=== PATIENT | male | born 1985 | race Hispanic/Latino ===

== ENCOUNTER 2017-02-21 02:27 | Emergency (ER) | payer OTHER ==
[2017-02-21 02:37] VITALS: BP 125/73; PULSE 102; RESP 18; TEMP 97.6; O2SAT 98
--- NOTE | 2017-02-21 04:50 | ED PDOC ---
HPI: Psych/Substance Abuse Time Seen by Provider: 02/21/17 02:59 Chief Complaint (Nursing): Alcohol Ingestion Chief Complaint (Provider): alcohol Additional Complaint(s): 31yoM in ED for eval of intoxication. ptwith slurred speech/unstable gait. Past Medical History Reviewed: Historical Data, Nursing Documentation, Vital Signs Vital Signs: Last Vital Signs Temp 97.6 F 02/21/17 02:35 Pulse 102 H 02/21/17 02:35 Resp 18 02/21/17 02:35 BP 125/73 02/21/17 02:35 Pulse Ox 98 02/21/17 02:35 - Medical History PMH: No Chronic Diseases - Family History Family History: States: No Known Family Hx - Allergies Allergies/Adverse Reactions: Allergies Allergy/AdvReac Type Severity Reaction Status Date / Time No Known Allergies Allergy Verified 02/21/17 02:51 Review of Systems ROS Statement: Except As Marked, All Systems Reviewed And Found Negative Constitutional: Negative for: Fever, Chills Physical Exam - Reviewed Nursing Documentation Reviewed: Yes Vital Signs Reviewed: Yes - Physical Exam Appears: Positive for: Well, Non-toxic, No Acute Distress Head Exam: Positive for: ATRAUMATIC, NORMAL INSPECTION, NORMOCEPHALIC Skin: Positive for: Normal Color, Warm, DRY Cardiovascular/Chest: Positive for: Regular Rate, Rhythm Respiratory: Positive for: CNT, Normal Breath Sounds Neurologic/Psych: Positive for: Alert, Oriented, Gait (unstable) - ECG O2 Sat by Pulse Oximetry: 98 - Progress ED Course And Treament: pt is intoxicated will keep in ED for observation. Disposition - Clinical Impression Clinical Impression: Alcohol abuse with intoxication - Patient ED Disposition Is Patient to be Admitted: No Counseled Patient/Family Regarding: Need For Followup - Disposition Disposition: Routine/Home Disposition Time: 06:00 Condition: IMPROVED Instructions: Alcohol Intoxication (DC)
== END 2017-02-21 06:10 | disposition home or self-care (01) ==
LOC: H.ER 02:27
DX: F10.129 Alcohol abuse with intoxication, unspecified (principal)
CPT/HCPCS: 82948; 99282; G0480